=== PATIENT | male | born 1985 | race Caucasian/White ===

== ENCOUNTER 2020-08-01 16:13 | Outpatient (CLI) | payer OTHER ==
--- NOTE | 2020-08-01 16:35 | RAD ---
Right elbow 4 views:: 08/01/2020 COMPARISON: None HISTORY: Right elbow pain, recent injury FINDINGS: No fracture or dislocation. No radiopaque foreign body or subcutaneous gas. The lateral exa mination demonstrates no elbow joint effusion. IMPRESSION: No acute findings.
== END 2020-08-01 16:14 | disposition home or self-care (01) ==
LOC: SCSRAD 16:13
PROVIDERS: ATTEND Nurse Practitioner Family
DX: M25.521 Pain in right elbow (principal)